=== PATIENT | male | born 1995 | race Caucasian/White ===

== ENCOUNTER 2025-02-27 09:37 | Emergency (ER) | payer SELFPAY ==
[2025-02-27 09:43] VITALS: BP 115/72; PULSE 81; TEMP 37; O2SAT 100; BMI 21.7
[2025-02-27] MEDS: LIDOCAINE HCL 1% 100 MG/10 ML MDV INJ (09:50)
--- OUTSIDE RECORDS SUMMARY | 2025-02-27 09:51 | XMS_ITS | Encounter Summary ---
Author Organization Synup tem Address [facility] [place]-[id number] [address] [place] [address] Care Team Providers Care Protective Signal Installer Helper Name Role Phone No Pcp, No Pcp Primary Care Provider Unavailabl e Encounter Details Date Type Department Care Team (Latest Contact Info) Description 02/25/2025 Travel Social History Tobacco Use Types Packs/Day Years Used Date Smoking Tobacco: Never Assessed Sex and Gender Information Value Date Recorded Sex Assigned at Not on file Legal Sex Male 10:30 AM EDT Gender Identity Not on file Sexual Orientation Not on file documented as of this encounter Plan of Treatment Not on file documented as of this encounter Visit Diagnoses Not on filedocumented in this encounter Care Teams Protective Signal Installer Helper Relationship Specialty Start Date End Date No Pcp, [place] [address] PCP - General Family Medicine 02/25/25 documented as of this encounter
--- OUTSIDE RECORDS SUMMARY | 2025-02-27 09:51 | XMS_ITS | Clinical Summary ---
Author Organization Pharmaca tem Address [facility] [id number] [address] [place] [address] Care Team Providers Care Machine Deburrer Name Role Phone No Pcp, No Pcp Primary Care Provider Unavailabl e Allergies Active Allergy Reactions Criticality Noted Date Comments Penicillins 02/25/2025 Medications doxycycline (VIBRAMYCIN) 100 mg capsule Take 1 capsule (100 mg total) by mouth in the morning and 1 capsule (100 mg total) before bedtime. Do all this for 7 days. 14 capsule 02/25/2025 Active Encounters Date Type Department Care Team Description 02/25/2025 10:34 AM EDT - 02/25/2025 10:53 AM EDT Emergency [facility] - Emergency [address] [place] [address] Insect bite, unspecified site, initial encounter (Primary Dx); Cellulitis of buttock Discharge Disposition: Home 02/25/2025 Travel from Last 3 Months Social History Tobacco Use Types Packs/Day Years Used Date Smoking Tobacco: Never Assessed Sex and Gender Information Value Date Recorded Sex Assigned at Not on file Legal Sex Male 10:30 AM EDT Gender Identity Not on file Sexual Orientation Not on file Last Filed Vital Signs Vital Sign Reading Time Taken Comments Blood Pressure 136/94 02/25/2025 10:39 AM EDT Pulse 73 02/25/2025 10:52 AM EDT Temperature 36.8 C (98.2 F) 02/25/2025 10:39 AM EDT Respiratory Rate 16 02/25/2025 10:52 AM EDT Oxygen Saturation 98% 02/25/2025 10:39 AM EDT Inhaled Oxygen Concentration - - Weight 72.6 kg (160 lb) 02/25/2025 10:39 AM EDT Height 182.9 cm (6') 02/25/2025 10:39 AM EDT Body Mass Index 21.7 02/25/2025 10:39 AM EDT Plan of Treatment Not on file Medical Devices Not on file Care Teams Machine Deburrer Relationship Specialty Start Date End Date No Pcp, No Pcp JEFF Mcdaniel [id number] PCP - General Family Medicine 02/25/25
--- NOTE | 2025-02-27 11:15 | ED.SKABFB1 ---
HPI - Skin/Abscess/Foreign Bdy General Chief complaint: Skin/Abscess/Foreign Body Stated complaint: SPIDER BITE ABCESS Time Seen by Provider: 02/27/25 09:42 Source: patient and family Mode of arrival: walk-in Limitations: no limitations History of Present Illness HPI narrative: 29-year-old male is coming to the ER with a right buttock abscess that developed over the last few days. He was already evaluated outside of this hospital and provided with a antibiotic. The patient mentioned that after he started the antibiotic 3 days ago that is doxycycline he has been having more swelling in the area and pain. No fever no chills no history of similar presentation Related Data Home Medications ?Medication ?Instructions ?Recorded ?Confirmed doxycycline hyclate 100 mg capsule 100 mg PO Q12H 02/27/25 02/27/25 Previous Rx's ?Medication ?Instructions ?Recorded cephalexin 500 mg capsule 500 mg PO Q8H 7 days #21 caps 02/27/25 naproxen 250 mg tablet 250 mg PO Q12H PRN pain #20 tabs 02/27/25 Allergies Allergy/AdvReac Type Severity Reaction Status Date / Time amoxicillin AdvReac Mild Hives Verified 02/27/25 09:46 Penicillins AdvReac Mild Hives Verified 02/27/25 09:46 Review of Systems ROS Status of ROS 10 or more systems reviewed and unremarkable except as noted in history and below PFSH PFSH Social History Little interest or pleasure in doing things: not at all Feeling down, depressed, or hopeless: not at all Exam Narrative Exam Narrative: Nurses notes and vital signs reviewed and patient is not hypoxic. General: Well-appearing and in no apparent distress. Right buttock examination: Patient have an abscess that is almost 5 cm circular with a 1 spot of draining in the middle. The patient have redness and tenderness on palpation as well as induration and there is a fluctuation at the spot of drainage. This is in the right buttock away from the rectum Constitutional Vital Signs, click to edit/add: Last Vital Signs Temp 98.6 F 02/27/25 09:43 Pulse 81 02/27/25 09:43 Resp 18 02/27/25 09:43 BP 115/72 02/27/25 09:43 Pulse Ox 100 02/27/25 09:43 O2 Del Method Room Air 02/27/25 09:43 Course Vital Signs Vital signs: Vital Signs Temperature 98.6 F 02/27/25 09:43 Pulse Rate 81 02/27/25 09:43 Respiratory Rate 18 02/27/25 09:43 Blood Pressure 115/72 02/27/25 09:43 Pulse Oximetry 100 02/27/25 09:43 Oxygen Delivery Method Room Air 02/27/25 09:43 Temperature 98.6 F 02/27/25 09:43 Pulse Rate 81 02/27/25 09:43 Respiratory Rate 18 02/27/25 09:43 Blood Pressure 115/72 02/27/25 09:43 Pulse Oximetry 100 02/27/25 09:43 Oxygen Delivery Method Room Air 02/27/25 09:43 MDM - Skin/Abscess/Foreign Bdy MDM Narrative Medical decision making narrative: After cleaning the area thoroughly with Betadine in addition to infiltrating the area with 1% lidocaine Almost 7 cc The patient had the area drained with a tap with a large bore needle and also with 11 size blade stab and cutting the circulation with a hemostat. There was an opening almost 0.5 cm that was packed There was almost 5 cc of pus at least drained and the patient had a culture sent for evaluation The patient also had Keflex added to his current antibiotic regimen Patient will start warm sitz bath tomorrow in addition to taking out the packing Patient to come back in case of any worsening of symptoms or any fever chills The patient is to follow up with primary care physician in next 2-3 days or to return to the emergency department should any of the signs or symptoms worsen or new symptoms develop. The patient agrees with the following Diagnosis and Treatment plan and the patient will be discharged home. Discharge Plan Discharge Chief Complaint: Skin/Abscess/Foreign Body Clinical Impression: Cellulitis, Abscess of buttock Patient Disposition: Home, Self-Care Time of Disposition Decision: 10:12 Condition: Good Prescriptions / Home Meds: New cephalexin 500 mg capsule 500 mg PO Q8H 7 Days Qty: 21 0RF naproxen 250 mg tablet 250 mg PO Q12H PRN (Reason: pain) Qty: 20 0RF No Action doxycycline hyclate 100 mg capsule 100 mg PO Q12H Print Language: Bahraini Instructions: Abscess (ED), Sitz Bath (DC), Incision and Drainage (ED) Referrals: Physician,Non-Staff, MD [Primary Care Provider] - 1 week Discharge Date/Time: 02/27/25 10:17
== END 2025-02-27 10:17 | disposition home or self-care (01) ==
PROVIDERS: Emergency Provider Emergency Medicine
DX: L03.818 Cellulitis of other sites (principal); L02.31 Cutaneous abscess of buttock
CPT/HCPCS: 87070; 87075; 87186; 99283